=== PATIENT | male | born 1970 | race African-American/Black ===

== ENCOUNTER 2016-05-19 09:03 | Outpatient (CLI) | payer MEDICAID | END 2016-05-19 09:04 | disposition home or self-care (01) | DX: R39.11 Hesitancy of micturition (principal) ==

== ENCOUNTER 2016-12-20 16:33 | Outpatient (CLI) | payer MEDICAID | END 2016-12-20 16:34 | disposition home or self-care (01) | LOC: LAB.R 16:33 | PROVIDERS: ATTEND Nurse Practitioner Gerontology | DX: J06.9 Acute upper respiratory infection, unspecified (principal) | CPT/HCPCS: 87275; 87276 ==

== ENCOUNTER 2017-02-22 08:00 | Outpatient (CLI) | payer MEDICAID | END 2017-02-22 08:01 | disposition home or self-care (01) | LOC: LAB.N 08:00 | PROVIDERS: ATTEND Nurse Practitioner Gerontology | DX: E04.9 Nontoxic goiter, unspecified (principal) | CPT/HCPCS: 36415; 84443 ==